=== PATIENT | female | born 1955 | race Caucasian/White ===

== ENCOUNTER 2017-07-05 08:43 | Day surgery (SDC) | payer MEDICARE ==
[~2017-07-05 08:43] MED LIST: Buffered Lidocaine 0.9% SYRIN* 5 ML/SYR SYRINGE INTRADERM ONE; Dexamethasone IV* 4 MG/ML 1 ML (4 MG) IV SLOW PU ONE; Famotidine IV* 10 MG/ML 2 ML (20 mg) IV ONE
[2017-07-05] MEDS ORDERED: Dexamethasone IV* 4 MG/ML 1 ML (4 MG) ONE (09:11)
[2017-07-05] MEDS ORDERED: ceFAZolin 2 GM PREMIX (*) 0 GM/0 ML BAG IVPB ONE (09:11)
[2017-07-05] MEDS ORDERED: Famotidine IV* 10 MG/ML 2 ML (20 mg) ONE (09:11)
[2017-07-05] MEDS ORDERED: Clindamycin 900 MG IVPREMIX(* 900 MG/50 ML SDV IV ONE (09:41)
[2017-07-05] MEDS ORDERED: Atracurium* 10 MG/ML 10 ML VIAL ONE (10:04)
[2017-07-05] MEDS ORDERED: ROPIVACAINE 5 MG/ML 30 ML BTL (0.5%) ONE (10:04)
[2017-07-05] MEDS ORDERED: Bupivacaine 0.25% SDV* 30 ML ONE (10:08)
[2017-07-05] MEDS ORDERED: Bupivacaine 0.5% W/EPI SDV* 30 ML VIAL ONE (10:09)
[2017-07-05] MEDS ORDERED: fentaNYL* 50 MCG/ML 2 ML VIAL (100 MCG VIAL) ONE ×2 (10:10→10:39)
[2017-07-05] MEDS ORDERED: Midazolam* 1 MG/ML 5 ML VIAL (5 MG) ONE (10:10)
[2017-07-05] MEDS ORDERED: methylPREDNISolone ACETATE 80* 80 MG/ML 1 ML VIAL ONE (11:12)
[2017-07-05] MEDS ORDERED: oxyCODONE/Acetamin 5/325 MG* TAB PO PRN (11:24)
[2017-07-05] MEDS ORDERED: Ondansetron INJ* 2 MG/ML VIAL IV PRN (11:24)
[2017-07-05] MEDS ORDERED: Scopolamine 1.5 mg* PATCH TRANSDERM PRN (11:24)
[2017-07-05] MEDS ORDERED: DiMENhydriNATE IV* 50 MG/ML VIAL IV PUSH PRN (11:24)
[2017-07-05] MEDS ORDERED: HYDROmorphone INJ* 1 MG/ML CARPUJECT SYRINGE IV PRN (11:24)
[2017-07-05] MEDS ORDERED: fentaNYL* 50 MCG/ML 2 ML VIAL (100 MCG VIAL) IV PRN (11:24)
[2017-07-05] MEDS ORDERED: Propofol* 10 MG/ML 20 ML BTL IV PUSH ONE (11:27)
[2017-07-05] MEDS ORDERED: Ketorolac INJ* 30 MG/ML 1 ML VIAL ONE (11:27)
[2017-07-05] MEDS ORDERED: Levalbuterol 1.25MG/0.5ML NEB ONE (11:51)
[2017-07-05] MEDS ORDERED: Levalbuterol 0.63MG/3ML NEB* UNIT OF USE INH ONE (11:59)
[2017-07-05] MEDS ORDERED: Edrophonium Chloride* 10 MG/ML 15 ML VIAL ONE (12:07)
[2017-07-05] MEDS ORDERED: Glycopyrrolate IV* 0.2 MG/ML 1 ML VIAL ONE (12:07)
[2017-07-05 12:44] VITALS: BP 117/76
[2017-07-08] MEDS ORDERED: Scopolamine PATCH Remove* 1 NOTE MISC PATCH OFF ONE (11:25)
--- NOTE | 2017-07-10 23:22 | OP ---
OPERATIVE REPORT: DATE OF OPERATION: 07/05/17 DATE OF : 59 SURGEON: Jules Mclean MD [facility] DIRECTOR: MURTAZA Fischer ANESTHESIOLOGIST: Sagar Fink MD ANESTHESIA: General with interscalene block. PRE-OP DIAGNOSIS: Right shoulder osteoarthritis with partial tear in the rotator cuff. POST-OP DIAGNOSES: Right shoulder osteoarthritis with partial tear in the rotator cuff and bicipital tendinitis. OPERATIVE PROCEDURE: 1. Right shoulder arthroscopy with extensive glenohumeral debridement including chondroplasty as well as debridement of the supraspinatus, infraspinatus, as well as subscapularis [place] biceps [place] 20382 2. Subacromial decompression with [place]romi[place]. cpt 98887 3. Intraarticular injection of 80 mg Depo-Medrol. 4. Removal of loose body x2 greater than 5 mm. cpt 08088 COMPLICATIONS: None. ESTIMATED BLOOD LOSS: Minimal. INDICATIONS: Meagan Rose is a 61-year-old female with known right shoulder osteoarthritis, she has seen several doctors for this. She has refused shoulder replacement surgery due to personal reasons. She has failed conservative management, including PT and steroid injections, and is interested in surgical debridement knowing that she may continue to have persistent pain. She is very young. There was concern for possible rotator cuff tear. I discussed at length, however, rotator cuff repair may be beneficial for her and that it is not unreasonable to do rotator cuff repair with debridement of the joint, but she was against any kind of rehab. Therefore, decision was made to do an arthroscopic depression and debridement. I did discuss with her that her biceps was likely involved as well and she elected to proceed with tenotomy. Risks and benefits were discussed at length include but not limited to bleeding , infection, damage to nerves, vessels, surrounding structures, wound nonhealing , persistent pain, scarring, stiffness, incomplete relief of symptoms, risk of anesthesia, need for further surgery, risk of DVT. The patient elected to proceed. DESCRIPTION OF PROCEDURE: The patient was greeted in the preoperative area by the attending surgeon. The correct extremity was marked and consent was confirmed. The patient then underwent interscalene nerve block by the anesthesiologist, after which she was brought back to the operating suite. She was placed in supine position on the operating table. She then underwent general anesthesia with endotracheal intubation after which she was positioned in the left lateral decubitus position with an axillary roll. All bony prominences were padded. She was secured with a peg board. The right arm was draped unsterile with 10 pounds of traction. The right shoulder was prepped and draped with the chlorhexidine soap, scrub, and alcohol wipe and a final prep with ChloraPrep. After appropriate surgical pause indicating site, side of the procedure, and administration of antibiotics, a standard posterolateral portal was made sharply with an 11-blade. The scope was then introduced into the joint. The joint was examined. The humeral head had grade 4 changes and glenoid grade 3 and 4 changes with unstable flaps. Anterior portal was made in an outside-in fashion. A shaver was used to debride the fat. Anterior, posterior, superior labrum had partial- thickness tearing. There was high-grade partial-thickness tearing of the supraspinatus tendon extending into some of the infraspinous. There was partial- thickness tearing at the subscapularis as well, but this was approximately 10-15%. The shaver was used to debride back the subscap. The biceps was taken through range of motion, found to have tear along the superior labrum and tear along the biceps substance itself. The biceps was then carefully tenotomized. The undersurface of supraspinatus was then debrided back using shaver extending into the infraspinatus. The glenohumeral joint was examined. There were small loose bodies inferiorly we tried to identify. In the inferior recess, there were a number of loose bodies. At least 2 of them were about 5 mm or greater; these were removed using emmanuelle as well as grasper. Once the debridement had been complete including chondroplasty and the rotator cuff debridement as well as biceps tenotomy, attention was directed to the subacromial space. The scope was positioned on the subacromial space, there was abundant bursa that was present. The undersurface of the acromion was identified and there was a moderate-sized spur. The acromion was skeletonized to reveal the spur. The spur was then removed using a 4.0-mm oval bur, which allowed for more room for the rotator cuff. Rotator cuff was examined and was found to be completely pristine on the bursal side. All fluid and debris was removed from this portion of the case. At this point, decision was made to proceed with an intraarticular injection and steroids for pain control postoperatively. The needle was placed in arthroscopic visualization into the glenohumeral joint. The wounds were copiously irrigated with sterile saline. All fluid and debris was removed from the joint itself. The the portals were closed with 3-0 nylon. The glenohumeral joint was injected with 80 mg of Depo-Medrol with 3 cc of Marcaine. Sterile dressings were applied as well as regular sling. She was woken from anesthesia, transferred to PACU in stable condition. POSTOPERATIVE PLAN: She will be allowed gentle range of motion. She should not be lifting, pushing, or pulling for about 3 to 4 weeks. I will see the patient back in 10 to 14 days. She will be discharged on pain medications. DVT prophylaxis was considered but deferred due to no previous personal or family history. [id number]/CPS #: [id number] RAMON
== END 2017-07-05 13:01 | disposition home or self-care (01) ==
LOC: OREAST 08:43
PROVIDERS: ATTEND Orthopaedic Surgery
DX: M75.111 Incomplete rotator cuff tear or rupture of right shoulder, not specified as traumatic (principal); M19.011 Primary osteoarthritis, right shoulder; M75.21 Bicipital tendinitis, right shoulder; M24.011 Loose body in right shoulder; E11.9 Type 2 diabetes mellitus without complications; I10 Essential (primary) hypertension; K22.70 Barrett's esophagus without dysplasia; D04.8 Carcinoma in situ of skin of other sites; F41.8 Other specified anxiety disorders; K70.2 Alcoholic fibrosis and sclerosis of liver; M79.7 Fibromyalgia; M19.90 Unspecified osteoarthritis, unspecified site; Z87.891 Personal history of nicotine dependence; G24.9 Dystonia, unspecified; R05 Cough
CPT/HCPCS: A9270-GY; J0690; J1040; J1100; J1885; J2250; J2704; J2795; J3010

== ENCOUNTER 2019-07-26 05:31 | Inpatient (IN) | payer MEDICARE ==
[~2019-07-26 05:31] MED LIST changes: -Buffered Lidocaine 0.9% SYRIN* 5 ML/SYR SYRINGE INTRADERM ONE; +Buffered Lidocaine 1% SYRIN* 1 ML/SYRINGE INTRADERM ONE; -Dexamethasone IV* 4 MG/ML 1 ML (4 MG) IV SLOW PU ONE; -Famotidine IV* 10 MG/ML 2 ML (20 mg) IV ONE; +Tranexamic Acid 1,000 MG in NS 0.9% 50 ML* (outpatient use) IV SCH
--- OUTSIDE RECORDS SUMMARY | 2019-07-26 05:34 | XMS REPORT | Continuity of Care Document ---
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 Unavailable Problems Active Problems Provider Date Common variable agammaglobulinemia Frederic Myrick MD Onset: 06/18/2016 Moderate persistent asthma Frederic Myrick MD Onset: 10/01/2016 Cough Kevyn Thompson RPA-C Onset: 10/13/2016 Acute maxillary sinusitis Frederic Myrick MD Onset: 11/05/2016 Essential hypertension Frederic Myrick MD Onset: 01/14/2017 Acute bronchitis Beena Kahn NP Onset: 03/04/2018 Viremia Frederic Myrick MD Onset: 05/09/2018 Other herpesviral infection Frederic Myrick MD Onset: 11/18/2018 Social History Type Date Description Comments Sex Unknown Tobacco Use Start: Unknown End: Unknown Patient is a former smoker Smoking Status Reviewed: 06/01/19 Patient is a former smoker Allergies, Adverse Reactions, Alerts Active Allergies Reaction Severity Comments Date Xanax 06/18/2016 Gabapentin 06/18/2016 Codeine 06/18/2016 Zostavax 06/18/2016 Metronidazole 06/18/2016 Doxycycline 06/18/2016 Xifaxan 06/18/2016 Januvia 06/18/2016 Vitamin C 06/18/2016 Augmentin 06/18/2016 Singulair 06/18/2016 Citric Acid 06/18/2016 Casein 06/18/2016 Ginseng 06/18/2016 Bovine Extracted Products 06/18/2016 DGL 06/18/2016 Cortef 06/18/2016 Parabens 01/14/2017 Soybean Lecithin GI distress Mild 01/12/2018 Amoxicillin 06/01/2019 Medications Active Medications SIG Qnty Indications Ordering Provider Date Lidocaine-Prilocaine apply 30-40 30gm Kevyn Thompson, 05/11/2019 minutes prior to RPA-C 2.5-2.5% Cream infusion Low Dose Naltroxene Kevyn Thompson, 12/05/2018 RPA-C [facility]ul[facility] Kit/Tubing/Mouthpiec directed MD Ramez e Kit J45.41 Medrol take 5 tablets day 15tabs [facility] 11/24/2018 4mg Tablets 1, take 4 tabs day MD Ramez 2, take 3 tabs day 3, take 2 tabs day 4. then take 1 tab on day 5. Albuterol Sulfate 1 vial every 4h as 150ml [facility] 03/04/2018 needed MD Ramez (2.5mg/3ML) 0.083% Nebulizer Ventolin HFA inhale 2 puffs by 8gm [facility] 03/04/2018 inhalation route MD Ramez 108(90Base) mcg/Act every 4 hours as Aerosol needed Gamunex-C 50GM IV Monthly [facility] 09/27/2017 50GM/500ML MD Ramez Solution Crestor one tablet by mouth [facility] 09/27/2017 10mg Tablets daily MD Ramez Epipen 2-Fidencio as directed 2units [facility] 03/10/2017 MD Ramez 0.3mg/0.3ML Solution Auto-Inject Protonix 1 to 2 by mouth [facility] 06/18/2016 40mg Tablets every day prn MD DR Marilin Myrick Unknown 2mg Pen Karyna Allergy 1 tab daily in the Unknown 60mg morning Tablets Glipizide 2 tabs once daily Unknown 5mg Tablets in Am Famciclovir 2 twice a day prn Unknown 250mg -outbreak Tablets Benadryl Allergy prn-OTC Unknown 25mg Capsules Dextromethorphan-Guai 1 at bedtime once Unknown fenesin daily 15-600 Tablets Probiotic Acidophilus OTC- takes only as Unknown needed Capsules Ibuprofen 1 by mouth three Unknown 800mg Tablets times a day as needed with food prn Clonazepam 1.5mg once daily at Unknown 1.5mg hs Tablets Restasis one drop in each eye Unknown 0.05% Emulsion twice a day Remeron Take one tab daily Unknown 15mg Tablets at bedtime Medications Administered in Office Medication SIG Qnty Indications Ordering Provider Date Injection Gamunex IV Frederic Myrick MD 05/11/2019 Nonlyophilized 500 MG Injection Injection Gamunex IV Infusion 05/11/2019 Nonlyophilized 500 MG Injection IV Infusion For Frederic Myrick MD 05/11/2019 Therapy,Prophylaxis Or Diagnosis Additional Hour Injection IV Infusion For Infusion 05/11/2019 Therapy,Prophylaxis Or Diagnosis Additional Hour Injection IV Infusion For Frederic Myrick MD 05/11/2019 Therapy,Prophylaxis Or Diagnosis Init Up To 1 HR Injection IV Infusion For Infusion 05/11/2019 Therapy,Prophylaxis Or Diagnosis Init Up To 1 HR Injection Injection Gamunex IV Frederic Myrick MD 04/14/2019 Nonlyophilized 500 MG Injection Injection Gamunex IV Infusion 04/14/2019 Nonlyophilized 500 MG Injection IV Infusion For Frederic Myrick MD 04/14/2019 Therapy,Prophylaxis Or Diagnosis Additional Hour Injection IV Infusion For Infusion 04/14/2019 Therapy,Prophylaxis Or Diagnosis Additional Hour Injection IV Infusion For Frederic Myrick MD 04/14/2019 Therapy,Prophylaxis Or Diagnosis Init Up To 1 HR Injection IV Infusion For Infusion 04/14/2019 Therapy,Prophylaxis Or Diagnosis Init Up To 1 HR Injection Injection Gamunex IV Frederic Myrick MD 03/16/2019 Nonlyophilized 500 MG Injection Injection Gamunex IV Infusion 03/16/2019 Nonlyophilized 500 MG Injection IV Infusion For Frederic Myrick MD 03/16/2019 Therapy,Prophylaxis Or Diagnosis Additional Hour Injection IV Infusion For Infusion 03/16/2019 Therapy,Prophylaxis Or Diagnosis Additional Hour Injection IV Infusion For Frederic Myrick MD 03/16/2019 Therapy,Prophylaxis Or Diagnosis Init Up To 1 HR Injection IV Infusion For Infusion 03/16/2019 Therapy,Prophylaxis Or Diagnosis Init Up To 1 HR Injection Injection Gamunex IV Frederic Myrick MD 02/15/2019 Nonlyophilized 500 MG Injection Injection Gamunex IV Infusion 02/15/2019 Nonlyophilized 500 MG Injection IV Infusion For Frederic Myrick MD 02/15/2019 Therapy,Prophylaxis Or Diagnosis Additional Hour Injection IV Infusion For Infusion 02/15/2019 Therapy,Prophylaxis Or Diagnosis Additional Hour Injection IV Infusion For Frederic Myrick MD 02/15/2019 Therapy,Prophylaxis Or Diagnosis Init Up To 1 HR Injection IV Infusion For Infusion 02/15/2019 Therapy,Prophylaxis Or Diagnosis Init Up To 1 HR Injection Injection Gamunex IV Frederic Myrick MD 01/18/2019 Nonlyophilized 500 MG Injection Injection Gamunex IV Infusion 01/18/2019 Nonlyophilized 500 MG Injection IV Infusion For Frederic Myrick MD 01/18/2019 Therapy,Prophylaxis Or Diagnosis Additional Hour Injection IV Infusion For Infusion 01/18/2019 Therapy,Prophylaxis Or Diagnosis Additional Hour Injection IV Infusion For Frederic yMrick MD 01/18/2019 Therapy,Prophylaxis Or Diagnosis Init Up To 1 HR Injection IV Infusion For Infusion 01/18/2019 Therapy,Prophylaxis Or Diagnosis Init Up To 1 HR Injection Injection Gamunex IV Frederic Myrick MD 12/22/2018 Nonlyophilized 500 MG Injection Injection Gamunex IV Infusion 12/22/2018 Nonlyophilized 500 MG Injection IV Infusion For Frederic Myrick MD 12/22/2018 Therapy,Prophylaxis Or Diagnosis Additional Hour Injection IV Infusion For Infusion 12/22/2018 Therapy,Prophylaxis Or Diagnosis Additional Hour Injection IV Infusion For Frederic Myrick MD 12/22/2018 Therapy,Prophylaxis Or Diagnosis Init Up To 1 HR Injection IV Infusion For Infusion 12/22/2018 Therapy,Prophylaxis Or Diagnosis Init Up To 1 HR Injection Injection Gamunex IV Frederic Myrick MD 11/24/2018 Nonlyophilized 500 MG Injection Injection Gamunex IV Infusion 11/24/2018 Nonlyophilized 500 MG Injection IV Infusion For Frederic Myrick MD 11/24/2018 Therapy,Prophylaxis Or Diagnosis Additional Hour Injection IV Infusion For Infusion 11/24/2018 Therapy,Prophylaxis Or Diagnosis Additional Hour Injection IV Infusion For Frederic Myrick MD 11/24/2018 Therapy,Prophylaxis Or Diagnosis Init Up To 1 HR Injection IV Infusion For Infusion 11/24/2018 Therapy,Prophylaxis Or Diagnosis Init Up To 1 HR Injection Injection Gamunex IV Frederic Myrick MD 10/20/2018 Nonlyophilized 500 MG Injection Injection Gamunex IV Infusion 10/20/2018 Nonlyophilized 500 MG Injection IV Infusion For Frederic Myrick MD 10/20/2018 Therapy,Prophylaxis Or Diagnosis Additional Hour Injection IV Infusion For Infusion 10/20/2018 Therapy,Prophylaxis Or Diagnosis Additional Hour Injection IV Infusion For Frederic Myrick MD 10/20/2018 Therapy,Prophylaxis Or Diagnosis Init Up To 1 HR Injection IV Infusion For Infusion 10/20/2018 Therapy,Prophylaxis Or Diagnosis Init Up To 1 HR Injection Injection Gamunex IV Frederic Myrick MD 09/22/2018 Nonlyophilized 500 MG Injection Injection Gamunex IV Infusion 09/22/2018 Nonlyophilized 500 MG Injection IV Infusion For Frederic Myrick MD 09/22/2018 Therapy,Prophylaxis Or Diagnosis Additional Hour Injection IV Infusion For Infusion 09/22/2018 Therapy,Prophylaxis Or Diagnosis Additional Hour Injection IV Infusion For Frederic Myrick MD 09/22/2018 Therapy,Prophylaxis Or Diagnosis Init Up To 1 HR Injection IV Infusion For Infusion 09/22/2018 Therapy,Prophylaxis Or Diagnosis Init Up To 1 HR Injection Injection Gamunex IV Frederic Myrick MD 08/24/2018 Nonlyophilized 500 MG Injection Injection Gamunex IV Infusion 08/24/2018 Nonlyophilized 500 MG Injection IV Infusion For Frederic Myrick MD 08/24/2018 Therapy,Prophylaxis Or Diagnosis Additional Hour Injection IV Infusion For Infusion 08/24/2018 Therapy,Prophylaxis Or Diagnosis Additional Hour Injection IV Infusion For Frederic Myrick MD 08/24/2018 Therapy,Prophylaxis Or Diagnosis Init Up To 1 HR Injection IV Infusion For Infusion 08/24/2018 Therapy,Prophylaxis Or Diagnosis Init Up To 1 HR Injection Injection Gamunex IV Frederic Myrick MD 07/28/2018 Nonlyophilized 500 MG Injection Injection Gamunex IV Infusion 07/28/2018 Nonlyophilized 500 MG Injection IV Infusion For Frederic Myrick MD 07/28/2018 Therapy,Prophylaxis Or Diagnosis Additional Hour Injection IV Infusion For Infusion 07/28/2018 Therapy,Prophylaxis Or Diagnosis Additional Hour Injection IV Infusion For Frederic Myrick MD 07/28/2018 Therapy,Prophylaxis Or Diagnosis Init Up To 1 HR Injection IV Infusion For Infusion 07/28/2018 Therapy,Prophylaxis Or Diagnosis Init Up To 1 HR Injection Injection Gamunex IV Frederic Myrick MD 06/30/2018 Nonlyophilized 500 MG Injection Injection Gamunex IV Infusion 06/30/2018 Nonlyophilized 500 MG Injection IV Infusion For Frederic Myrick MD 06/30/2018 Therapy,Prophylaxis Or Diagnosis Additional Hour Injection IV Infusion For Infusion 06/30/2018 Therapy,Prophylaxis Or Diagnosis Additional Hour Injection IV Infusion For Frederic Myrick MD 06/30/2018 Therapy,Prophylaxis Or Diagnosis Init Up To 1 HR Injection IV Infusion For Infusion 06/30/2018 Therapy,Prophylaxis Or Diagnosis Init Up To 1 HR Injection Injection Gamunex IV Frederic Myrick MD 06/02/2018 Nonlyophilized 500 MG Injection Injection Gamunex IV Infusion 06/02/2018 Nonlyophilized 500 MG Injection IV Infusion For Frederic Myrick MD 06/02/2018 Therapy,Prophylaxis Or Diagnosis Additional Hour Injection IV Infusion For Infusion 06/02/2018 Therapy,Prophylaxis Or Diagnosis Additional Hour Injection IV Infusion For Frederic Myrick MD 06/02/2018 Therapy,Prophylaxis Or Diagnosis Init Up To 1 HR Injection IV Infusion For Infusion 06/02/2018 Therapy,Prophylaxis Or Diagnosis Init Up To 1 HR Injection Injection Gamunex IV Frederic Myrick MD 05/05/2018 Nonlyophilized 500 MG Injection Injection Gamunex IV Infusion 05/05/2018 Nonlyophilized 500 MG Injection IV Infusion For Frederic Myrick MD 05/05/2018 Therapy,Prophylaxis Or Diagnosis Additional Hour Injection IV Infusion For Infusion 05/05/2018 Therapy,Prophylaxis Or Diagnosis Additional Hour Injection IV Infusion For Frederic Myrick MD 05/05/2018 Therapy,Prophylaxis Or Diagnosis Init Up To 1 HR Injection IV Infusion For Infusion 05/05/2018 Therapy,Prophylaxis Or Diagnosis Init Up To 1 HR Injection Injection Gamunex IV Frederic Myrick MD 04/08/2018 Nonlyophilized 500 MG Injection Injection Gamunex IV Infusion 04/08/2018 Nonlyophilized 500 MG Injection IV Infusion For Frederic Myrick MD 04/08/2018 Therapy,Prophylaxis Or Diagnosis Additional Hour Injection IV Infusion For Infusion 04/08/2018 Therapy,Prophylaxis Or Diagnosis Additional Hour Injection IV Infusion For Frederic Myrick MD 04/08/2018 Therapy,Prophylaxis Or Diagnosis Init Up To 1 HR Injection IV Infusion For Infusion 04/08/2018 Therapy,Prophylaxis Or Diagnosis Init Up To 1 HR Injection Injection Gamunex IV Frederic Myrick MD 03/08/2018 Nonlyophilized 500 MG Injection Injection Gamunex IV Infusion 03/08/2018 Nonlyophilized 500 MG Injection IV Infusion For Frederic Myrick MD 03/08/2018 Therapy,Prophylaxis Or Diagnosis Additional Hour Injection IV Infusion For Infusion 03/08/2018 Therapy,Prophylaxis Or Diagnosis Additional Hour Injection IV Infusion For Frederic Myrick MD 03/08/2018 Therapy,Prophylaxis Or Diagnosis Init Up To 1 HR Injection IV Infusion For Infusion 03/08/2018 Therapy,Prophylaxis Or Diagnosis Init Up To 1 HR Injection Injection Gamunex IV Frederic Myrick MD 02/10/2018 Nonlyophilized 500 MG Injection Injection Gamunex IV Infusion 02/10/2018 Nonlyophilized 500 MG Injection IV Infusion For Frederic Myrick MD 02/10/2018 Therapy,Prophylaxis Or Diagnosis Additional Hour Injection IV Infusion For Infusion 02/10/2018 Therapy,Prophylaxis Or Diagnosis Additional Hour Injection IV Infusion For Frederic Myrick MD 02/10/2018 Therapy,Prophylaxis Or Diagnosis Init Up To 1 HR Injection IV Infusion For Infusion 02/10/2018 Therapy,Prophylaxis Or Diagnosis Init Up To 1 HR Injection Injection Gamunex IV Frederic Myrick MD 01/12/2018 Nonlyophilized 500 MG Injection Injection Gamunex IV Infusion 01/12/2018 Nonlyophilized 500 MG Injection IV Infusion For Frederic Myrick MD 01/12/2018 Therapy,Prophylaxis Or Diagnosis Additional Hour Injection IV Infusion For Infusion 01/12/2018 Therapy,Prophylaxis Or Diagnosis Additional Hour Injection IV Infusion For Frederic Myrick MD 01/12/2018 Therapy,Prophylaxis Or Diagnosis Init Up To 1 HR Injection IV Infusion For Infusion 01/12/2018 Therapy,Prophylaxis Or Diagnosis Init Up To 1 HR Injection Injection Gamunex IV Frederic Myrick MD 12/16/2017 Nonlyophilized 500 MG Injection Injection Gamunex IV Infusion 12/16/2017 Nonlyophilized 500 MG Injection IV Infusion For Frederic Myrick MD 12/16/2017 Therapy,Prophylaxis Or Diagnosis Additional Hour Injection IV Infusion For Infusion 12/16/2017 Therapy,Prophylaxis Or Diagnosis Additional Hour Injection IV Infusion For Frederic Myrick MD 12/16/2017 Therapy,Prophylaxis Or Diagnosis Init Up To 1 HR Injection IV Infusion For Infusion 12/16/2017 Therapy,Prophylaxis Or Diagnosis Init Up To 1 HR Injection Injection Gamunex IV Frederic Myrick MD 11/18/2017 Nonlyophilized 500 MG Injection Injection Gamunex IV Infusion 11/18/2017 Nonlyophilized 500 MG Injection IV Infusion For Frederic Myrick MD 11/18/2017 Therapy,Prophylaxis Or Diagnosis Additional Hour Injection IV Infusion For Infusion 11/18/2017 Therapy,Prophylaxis Or Diagnosis Additional Hour Injection IV Infusion For Frederic Myrick MD 11/18/2017 Therapy,Prophylaxis Or Diagnosis Init Up To 1 HR Injection IV Infusion For Infusion 11/18/2017 Therapy,Prophylaxis Or Diagnosis Init Up To 1 HR Injection Injection Gamunex IV Frederic Myrick MD 10/25/2017 Nonlyophilized 500 MG Injection Injection Gamunex IV Frederic Myrick MD 10/25/2017 Nonlyophilized 500 MG Injection Injection Gamunex IV Infusion 10/25/2017 Nonlyophilized 500 MG Injection IV Infusion For Frederic Myrick MD 10/25/2017 Therapy,Prophylaxis Or Diagnosis Additional Hour Injection IV Infusion For Infusion 10/25/2017 Therapy,Prophylaxis Or Diagnosis Additional Hour Injection IV Infusion For Frederic Myrick MD 10/25/2017 Therapy,Prophylaxis Or Diagnosis Init Up To 1 HR Injection IV Infusion For Infusion 10/25/2017 Therapy,Prophylaxis Or Diagnosis Init Up To 1 HR Injection Injection Gamunex IV Frederic Myrick MD 09/27/2017 Nonlyophilized 500 MG Injection Injection Gamunex IV Infusion 09/27/2017 Nonlyophilized 500 MG Injection IV Infusion For Frederic Myrick MD 09/27/2017 Therapy,Prophylaxis Or Diagnosis Additional Hour Injection IV Infusion For Infusion 09/27/2017 Therapy,Prophylaxis Or Diagnosis Additional Hour Injection IV Infusion For Frederic Myrick MD 09/27/2017 Therapy,Prophylaxis Or Diagnosis Init Up To 1 HR Injection IV Infusion For Infusion 09/27/2017 Therapy,Prophylaxis Or Diagnosis Init Up To 1 HR Injection Immunizations Description No Information Available Vital Signs Date Vital Result Comment 06/01/2019 9:33am BP Systolic 129 mmHg BP Diastolic 77 mmHg Height 64 inches 5'4" Weight 195.38 lb BMI (Body Mass Index) 33.5 kg/m2 Heart Rate 97 /min Respiratory Rate 18 /min O2 % BldC Oximetry 96 % 05/11/2019 12:51pm BP Systolic 149 mmHg BP Diastolic 92 mmHg Height 64 inches 5'4" Weight 194.12 lb BMI (Body Mass Index) 33.3 kg/m2 Heart Rate 95 /min Respiratory Rate 18 /min Body Temperature 98.3 F O2 % BldC Oximetry 95 % Results Test Date Facility Test Result H/L Range Note Laboratory test 03/01/2019 [facility] <pending> finding [facility] Unspec Spec Procedures Date Code Description Status 05/11/2019 15454 IV Infusion For Therapy,Prophylaxis Or Diagnosis Completed Additional Hour 05/11/2019 57289 IV Infusion For Therapy,Prophylaxis Or Diagnosis Completed Additional Hour 05/11/2019 92999 IV Infusion For Therapy,Prophylaxis Or Diagnosis Init Up Completed To 1 HR 05/11/2019 27285 IV Infusion For Therapy,Prophylaxis Or Diagnosis Init Up Completed To 1 HR 04/14/2019 22485 IV Infusion For Therapy,Prophylaxis Or Diagnosis Completed Additional Hour 04/14/2019 63060 IV Infusion For Therapy,Prophylaxis Or Diagnosis Completed Additional Hour 04/14/2019 65059 IV Infusion For Therapy,Prophylaxis Or Diagnosis Init Up Completed To 1 HR 04/14/2019 16084 IV Infusion For Therapy,Prophylaxis Or Diagnosis Init Up Completed To 1 HR 03/16/2019 22060 IV Infusion For Therapy,Prophylaxis Or Diagnosis Completed Additional Hour 03/16/2019 29364 IV Infusion For Therapy,Prophylaxis Or Diagnosis Completed Additional Hour 03/16/2019 22184 IV Infusion For Therapy,Prophylaxis Or Diagnosis Init Up Completed To 1 HR 03/16/2019 60649 IV Infusion For Therapy,Prophylaxis Or Diagnosis Init Up Completed To 1 HR 02/15/2019 70178 IV Infusion For Therapy,Prophylaxis Or Diagnosis Init Up Completed To 1 HR 02/15/2019 39941 IV Infusion For Therapy,Prophylaxis Or Diagnosis Init Up Completed To 1 HR 02/15/2019 86366 IV Infusion For Therapy,Prophylaxis Or Diagnosis Completed Additional Hour 02/15/2019 71653 IV Infusion For Therapy,Prophylaxis Or Diagnosis Completed Additional Hour 01/18/2019 06797 IV Infusion For Therapy,Prophylaxis Or Diagnosis Completed Additional Hour 01/18/2019 11169 IV Infusion For Therapy,Prophylaxis Or Diagnosis Completed Additional Hour 01/18/2019 37109 IV Infusion For Therapy,Prophylaxis Or Diagnosis Init Up Completed To 1 HR 01/18/2019 26850 IV Infusion For Therapy,Prophylaxis Or Diagnosis Init Up Completed To 1 HR 12/22/2018 28650 IV Infusion For Therapy,Prophylaxis Or Diagnosis Completed Additional Hour 12/22/2018 38135 IV Infusion For Therapy,Prophylaxis Or Diagnosis Completed Additional Hour 12/22/2018 97327 IV Infusion For Therapy,Prophylaxis Or Diagnosis Init Up Completed To 1 HR 12/22/2018 72805 IV Infusion For Therapy,Prophylaxis Or Diagnosis Init Up Completed To 1 HR Medical Devices Description No Information Available Encounters Type Date Location Provider Dx Diagnosis Office Visit 03/01/2019 Mary Champagne 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 B37.0 Candidal stomatitis Office Visit 12/05/2018 11:30a Kevyn Bentley 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 Assessments Date Code Description Provider 06/01/2019 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 Frederic Myrick MD 05/11/2019 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 Frederic Myrick MD 05/11/2019 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 Infusion 04/14/2019 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 Frederic Myrick MD 04/14/2019 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 Infusion 03/16/2019 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 Frederic Myrick MD 03/01/2019 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 Frederic Myrick MD 03/01/2019 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 MURTAZA Rothman 03/01/2019 B37.0 Candidal stomatitis Frederic Myrick MD 03/01/2019 B37.0 Candidal stomatitis MURTAZA Rothman 02/15/2019 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 rFederic Myrick MD 02/15/2019 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 Infusion 01/18/2019 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 Frederic Myrick MD 01/18/2019 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
--- OUTSIDE RECORDS SUMMARY | 2019-07-26 05:34 | XMS REPORT | Continuity of Care Document ---
:1955 External Reference #:[id number] Author Name MURTAZA Rodriguez (transmitted by agent of provider Mere Jimenes) Address [address] [facility], [address] Care Team Providers Name Role Phone Melinda Julian DO - Family Care Team Information Dietitian Teaching Medicine Problems Active Problems Provider Date Localized, primary osteoarthritis of the shoulder Jules Mclean MD Onset: 07/2017 region Disorder of shoulder Jules Mclean MD Onset: 05/27/2017 Bicipital tenosynovitis Jules Mclean MD Onset: 07/16/2017 Incomplete rotator cuff tear or rupture of right Jules Mclean MD Onset: 08/2016 shoulder, not specified as traumatic Social History Type Date Description Comments Sex Unknown Tobacco Use Start: Unknown End: Former Cigarette Smoker quit 36 years ago Unknown (smoked less than a pack a day) ETOH Use Currently consumes alcohol Tobacco Use Start: Unknown End: Patient is a former 10 or fewer cigarettes Unknown smoker daily, quit 36 years ago Smoking Status Reviewed: 05/30/19 Patient is a former 10 or fewer cigarettes smoker daily, quit 36 years ago Exercise Exercises sporadically yoga, walking and Type/Frequency cardio Allergies, Adverse Reactions, Alerts Active Allergies Reaction Severity Comments Date Xanax 02/14/2013 Codeine 02/14/2013 Gabapentin 02/14/2013 Parabens 05/27/2017 Some Steroids 05/27/2017 Augmentin Nausea and Vomiting 06/29/2017 Doxycycline Nausea and Vomiting 06/29/2017 Caseins 05/13/2018 Soy Acid 05/13/2018 Zostavax 05/13/2018 Metronidazole 05/13/2018 Xifaxan 05/13/2018 Sitagliptin 05/13/2018 Vitamin C 05/13/2018 Lyrica 05/13/2018 Sinqulan 05/13/2018 Dexamethasone 05/13/2018 Preservision 05/13/2018 Medications Active Medications SIG Qnty Indications Ordering Date Provider Naltrexone HCL 4.5 mg compounded in 15gm Claudette 04/25/2019 capsules by mouth MURTAZA Perkins Powder every day Fluconazole 1 by mouth once a 30tabs Claudette 12/19/2018 200mg week per pt MURTAZA Perkins Tablets Candex 2 capsules by mouth Unknown daily Nasacort Allergy 1 puff to each Unknown 24HR nostril every hs 55mcg/Act Aerosol Probiotic 1 by mouth every day Unknown Capsules currently pt. is holding med. Clotrimazole prn to skin folds Unknown 1% Cream Ketoconazole as needed in folds Unknown 2% Cream Famciclovir 1 by mouth twice Unknown 500mg daily for three days Tablets then as needed Ibuprofen 1 by mouth three Unknown 800mg times a day for Tablets fibromyalgia as needed Bydureon 1 injection weekly Unknown 2mg Pen Karyna Allergy 1 by mouth every day Unknown Tablets Gammunex-C qd Unknown 50mg Restasis 1 drop in each eye Unknown 0.05% Emulsion Crestor 1 by mouth every day Unknown 5mg Tablets Glipizide 2 tabs by mouth Unknown 5mg Tablets every day Mirtazapine qd Unknown 15mg Tablets Clonazepam 1.5mg qd [place], 1mg Melinda, DO Tablets Protonix 1 by mouth every day Unknown 40mg Tablets DR Medications Administered in Office Medication SIG Qnty Indications Ordering Provider Date Depomedrol 80MG Janice Samayoa M.D. 08/30/2014 Injection Depomedrol 80MG Janice Samayoa M.D. 01/18/2014 Injection Depomedrol 80MG Janice Samayoa M.D. 12/28/2013 Injection Immunizations Description No Information Available Vital Signs Date Vital Result Comment 05/30/2019 9:19am Height 64 inches 5'4" Weight 194.25 lb Heart Rate 97 /min BP Systolic 130 mmHg BP Diastolic 87 mmHg O2 % BldC Oximetry 97 % BMI (Body Mass Index) 33.3 kg/m2 05/08/2019 9:12am Height 64 inches 5'4" Weight 191.38 lb Heart Rate 90 /min BP Systolic 135 mmHg BP Diastolic 89 mmHg Body Temperature 97.5 F O2 % BldC Oximetry 97 % BMI (Body Mass Index) 32.8 kg/m2 Results Test Date Facility Test Result H/L Range Note Laboratory test 01/05/2019 [facility] Cytology SEE RESULT [address] [place] [address] [phone] 1 SEE RESULT BELOW Name: JAVI ROSE : [address]: Juan Antonio Marino MD Acct: [id number] Unit: [id number] AGE: 63 Location: [facility] Re01/05/19 SEX: F Status: REG REF SPEC: [id number] JEROD: 01/05/19-[address] [facility] [address]: Juan Antonio Marino MD REQ: [id number] RECD: 01/05/190926 STATUS: SOUT _ ORDERED: TP IMAGE ANALYS, HPV/Thin Prep COMMENTS: [id number] Negative for Intraepithelial lesion or Malignancy Date Time Test Result Flag (u) Normal Range 01/05/19 1006 HPV RNA Negative Negative The high-risk HPV types detected by the assay include: 16, 18, 31, 33, 35, 39, 45, 51, 52, 56, 58, 59, 66, and 68. A. Ectocervical/Endocervical Specimen Adequacy: Satisfactory of evaluation Transformation zone component cannot be definitely identified due to presence of atrophy or other hormonal changes Patient Information: HPV: High risk HPV RNA testing regardless of pap results. Actual Specimen Date: 01/05/19 Last Menstrual Date: 08/16/94 ?: N Post Menopausal?: Y Hysterectomy?: N Signed by and Reported on: BJORN Sierra(ASCP) [id number] This Pap test was evaluated with the assistance of the [employer] Test Imaging System. Due to cytologic findings at the supersonic engineer microscope, comprehensive manual rescreening by a Window Shade Cutter And Mounter may be required. The Pap Smear is a screening test designed to aid in the detection of premalignant and malignant conditions of the uterine cervix. It is not a diagnostic procedure and should not be used as the sole means of detecting cervical cancer. Both false- positive and false- negative reports do occur. Depending on your risk status, a Pap smear should be obtained and evaluated every 1-3 years. END OF REPORT DEPARTMENT OF PATHOLOGY, [address] [place] [address] Bobby Noland M.D. Director [facility] # [id number] Procedures Date Code Description Status 10/19/2018 [id number] Mammogram Completed 09/16/2016 [id number] Mammogram Completed 09/09/2016 [id number] Mammogram Completed 02/19/2016 [id number] Bone Mineral Density Test Completed Medical Devices Description No Information Available Encounters Type Date Location Provider Dx Diagnosis Office Visit 05/08/2019 [facility] [place] Melisa Saucedo, G89.4 Chronic pain 9:30a [facility] COW [facility]ENDER syndrome Office Visit 04/25/2019 [facility] [place] Claudette M79.7 Fibromyalgia 9:30a [facility] MURTAZA Perkins K58.0 Irritable bowel syndrome with diarrhea B37.9 Candidiasis, unspecified F32.1 Major depressive disorder, single episode, moderate Office Visit 03/30/2019 9:30a [facility] [place] Claudette Perkins M79.7 Fibromyalgia [facility] PA K58.0 Irritable bowel syndrome with diarrhea B37.9 Candidiasis, unspecified F32.1 Major depressive disorder, single episode, moderate Office Visit 02/21/2019 9:30a [facility] [place] Claudette Perkins K58.0 Irritable bowel [facility] [place] syndrome with diarrhea M79.7 Fibromyalgia F32.1 Major depressive disorder, single episode, moderate Office Visit 01/17/2019 10:00a [facility] [place] Claudette Perkins K58.0 Irritable bowel [facility] [place] syndrome with diarrhea M79.7 Fibromyalgia F32.1 Major depressive disorder, single episode, moderate Office Visit 12/19/2018 2:30p [facility] [place] Claudette Perkins K58.0 Irritable bowel [facility] PA syndrome with diarrhea B37.9 Candidiasis, unspecified B00.9 Herpesviral infection, unspecified Office Visit 12/13/2018 1:30p [facility] Claudia Escobar MD R05 [facility] [place] [facility] Assessments Date Code Description Provider 05/30/2019 M79.7 Fibromyalgia Claudette Gregorio, PA 05/30/2019 K58.0 Irritable bowel syndrome with diarrhea Claudette Gregorio, PA 05/30/2019 F32.1 Major depressive disorder, single episode, Claudette Gregorio, PA moderate 05/30/2019 B37.9 Candidiasis, unspecified Claudette Gregorio, PA 05/08/2019 G89.4 Chronic pain syndrome Melisa Saucedo NP 04/25/2019 M79.7 Fibromyalgia Claudette Gregorio, PA 04/25/2019 K58.0 Irritable bowel syndrome with diarrhea Claudette Gregoiro, PA 04/25/2019 B37.9 Candidiasis, unspecified Claudette Gregorio, PA 04/25/2019 F32.1 Major depressive disorder, single episode, Claudette Gregorio, PA moderate 03/30/2019 M79.7 Fibromyalgia Claudette Gregorio, PA 03/30/2019 K58.0 Irritable bowel syndrome with diarrhea Claudette Gregorio, PA 03/30/2019 B37.9 Candidiasis, unspecified Claudette Gregorio, PA 03/30/2019 F32.1 Major depressive disorder, single episode, Claudette Gregorio, PA moderate 02/21/2019 K58.0 Irritable bowel syndrome with diarrhea Claudette Gregorio, PA 02/21/2019 M79.7 Fibromyalgia Claudette Gregorio, PA 02/21/2019 F32.1 Major depressive disorder, single episode, Claudette Gregorio, PA moderate 01/17/2019 K58.0 Irritable bowel syndrome with diarrhea Claudette Gregorio, PA 01/17/2019 M79.7 Fibromyalgia Claudette Gregorio, PA 01/17/2019 F32.1 Major depressive disorder, single episode, Claudette Gregorio, PA moderate 01/05/2019 Z91.89 Oth personal risk factors, not elsewhere Juan Antonio Marino MD classified 01/05/2019 Z11.51 Encounter for screening for human Juan Antonio Marino MD papillomavirus (HPV) 12/19/2018 K58.0 Irritable bowel syndrome with diarrhea MURTAZA Rodriguez 12/19/2018 B37.9 Candidiasis, unspecified MURTAZA Rodriguez 12/19/2018 B00.9 Herpesviral infection, unspecified MURTAZA Rodriguez 12/13/2018 R05 Cough Claudia Escobar MD Plan of Treatment Future Appointment(s):06/29/2019 9:30 am - MURTAZA Rodriguez at [facility]05/30/2019 - Claudette Perkins, PAM79.7 SdeeycgbkckwH29.0 Irritable bowel syndrome with diarrheaRecommendations:you might try to get through another Breath test you will work with the handout on the biome and seeif you can gently introduce some prebiotics again. mix up your xmzttnayosO58.1 Major depressive disorder, single episode, xtmkuwtqV29.9 Candidiasis, unspecified Functional Status Description No Information Available Mental Status Description No Information Available Referrals Description No Information Available
--- OUTSIDE RECORDS SUMMARY | 2019-07-26 05:34 | XMS REPORT | Continuity of Care Document ---
:1955 External Reference #:[id number] Author Name Jules Mclean MD (transmitted by agent of provider Alyx Cordero) Address [address] [facility], [facility] [place] [address] Care Team Providers Name Role Phone Melinda Julian DO - Family Care Team Information Pad Machine Offbearer Medicine Problems Active Problems Provider Date Localized, primary osteoarthritis of the shoulder Jules Mclean MD Onset: 07/2017 region Disorder of shoulder Jules Mclean MD Onset: 05/27/2017 Bicipital tenosynovitis Jules Mclean MD Onset: 07/16/2017 Incomplete rotator cuff tear or rupture of right Jules Mclean MD Onset: 08/2016 shoulder, not specified as traumatic Strain of muscle(s) and tendon(s) of the rotator Jules Mclean MD Onset: 02/2019 cuff of right shoulder, subsequent encounter Social History Type Date Description Comments Sex Unknown Tobacco Use Start: Unknown End: Former Cigarette Smoker quit 36 years ago Unknown (smoked less than a pack a day) ETOH Use Currently consumes alcohol Tobacco Use Start: Unknown End: Patient is a former 10 or fewer cigarettes Unknown smoker daily, quit 36 years ago Smoking Status Reviewed: 06/22/19 Patient is a former 10 or fewer [...] qd Unknown 15mg Tablets Clonazepam 1.5mg qd [place], 1mg Melinda, DO Tablets Protonix 1 by mouth every day Unknown 40mg Tablets DR Medications Administered in Office Medication SIG Qnty Indications Ordering Provider Date Depomedrol 80MG Janice Smaayoa M.D. 08/30/2014 Injection Depomedrol 80MG Janice Samayoa M.D. 01/18/2014 Injection Depomedrol 80MG Janice Samayoa M.D. 12/28/2013 Injection Immunizations Description No Information Available Vital Signs Date Vital Result Comment 06/22/2019 1:36pm Height 64 inches 5'4" Weight 195.00 lb Heart Rate 100 /min BP Systolic 123 mmHg BP Diastolic 62 mmHg Body Temperature 98.2 F Pain Level 6 BMI (Body Mass Index) 33.5 kg/m2 05/30/2019 9:19am Height 64 inches 5'4" Weight 194.25 lb Heart Rate 97 /min BP Systolic 130 mmHg BP Diastolic 87 mmHg O2 % BldC Oximetry 97 % BMI (Body Mass Index) 33.3 kg/m2 Results Test Acquired Date Facility Test Result H/L Range Note Laboratory test 01/05/2019 [facility] Cytology SEE RESULT [address] [place] [address] [phone] 1 SEE RESULT BELOW Name: JAVI ROSE : [address]: Juan Antonio Marino MD Acct: [id number] Unit: [id number] AGE: 63 Location: [facility] Re01/05/19 SEX: F Status: REG REF SPEC: [id number] JEROD: 01/05/19-1006 [facility] DR: Juan Antonio Marino MD REQ: [id number] RECD: 01/05/197583 STATUS: SOUT _ ORDERED: TP IMAGE ANALYS, HPV/Thin Prep COMMENTS: [id number] Negative for Intraepithelial lesion or Malignancy Date [...] was evaluated with the assistance of the [employer]Prep Test Imaging System. Due to cytologic findings at the commodity buyer microscope, comprehensive manual rescreening by a Equine Manager may be required. The Pap Smear is [...] years. END OF REPORT DEPARTMENT OF PATHOLOGY, [address] [place] [address] Bobby Noland M.D. Director [facility] # [id number] Procedures Date Code Description Status 10/19/2018 [id number] Mammogram Completed 09/16/2016 [id number] Mammogram Completed 09/09/2016 [id number] Mammogram Completed 02/19/2016 [id number] Bone Mineral Density Test Completed Medical Devices Description No Information Available Encounters Type Date Location Provider Dx Diagnosis Office Visit 05/08/2019 [facility] Melisa Saucedo, G89.4 Chronic pain 9:30a [facility] DCS ENGINEER syndrome Office Visit 04/25/2019 [facility] Claudette M79.7 Fibromyalgia 9:30a [facility] MURTAZA Perkins K58.0 Irritable bowel syndrome with diarrhea B37.9 Candidiasis, unspecified F32.1 Major depressive disorder, single episode, moderate Office Visit 03/30/2019 9:30a [facility] Claudette Perkins M79.7 Fibromyalgia [facility] PA K58.0 Irritable bowel syndrome with diarrhea B37.9 Candidiasis, unspecified F32.1 Major depressive disorder, single episode, moderate Office Visit 02/21/2019 9:30a [facility] Claudette Perkins K58.0 Irritable bowel [facility] PA syndrome with diarrhea M79.7 Fibromyalgia F32.1 Major depressive disorder, single episode, moderate Office Visit 01/17/2019 10:00a [facility] Claudette Prekins K58.0 Irritable bowel [facility] [place] syndrome with diarrhea M79.7 Fibromyalgia F32.1 Major depressive disorder, single episode, moderate Assessments Date Code Description Provider 06/22/2019 M19.011 Primary osteoarthritis, right shoulder Jules Mclean MD 06/22/2019 S46.011D Strain of muscle(s) and tendon(s) of the Jules Mclean MD rotator cuff of right shoulder, subsequent encounter 05/30/2019 M79.7 Fibromyalgia Claudette Gregorio, PA 05/30/2019 K58.0 Irritable bowel syndrome with diarrhea Claudette Gregorio, PA 05/30/2019 F32.1 Major depressive disorder, single episode, Claudette Gregorio, PA moderate 05/30/2019 B37.9 Candidiasis, unspecified Claudette Gregorio, PA 05/08/2019 G89.4 Chronic pain syndrome Melisa Saucedo NP 04/25/2019 M79.7 Fibromyalgia Claudette Gregorio, PA 04/25/2019 K58.0 Irritable bowel syndrome with diarrhea Claudette Gregorio, PA 04/25/2019 B37.9 Candidiasis, unspecified Claudette Gregorio, [...] human Juan Antonio Marino MD papillomavirus (HPV) Plan of Treatment Future Appointment(s):06/29/2019 9:30 am - MURTAZA Rodriguez at [facility]06/22/2019 - Jules Mclean, MDM19.011 Primary osteoarthritis , right shoulderFollow up:Follow up: after mRI asapS46.011D Strain of muscle(s ) and tendon(s) of the rotator cuff of right shoulder, subsequent encounter Functional Status Description No Information Available Mental Status Description No Information Available Referrals Description No Information Available
--- OUTSIDE RECORDS SUMMARY | 2019-07-26 05:34 | XMS REPORT | Continuity of Care Document ---
:1955 External Reference #:[id number] Author Name Frederic Myrick MD Address [address] [place] [address] Care Team Providers Name Role Phone Melinda Julian MD Care Team Information County Treasurer [phone] Tr Cowan MD Care Team Information County Treasurer Unavailable Problems Active Problems Provider Date Common [...] is a former smoker Smoking Status Reviewed: 07/06/19 Patient is a former smoker Allergies, Adverse [...] minutes prior to RPA-C 2.5-2.5% Cream infusion Nebulizer use nebulizer as 1Kit J20.9 Frederic Clay 11/29/2018 Kit/Tubing/Mouthpiec directed MD Ramez e Kit J45.41 Medrol take 5 tablets day 15tabs Frederic Myrick, 11/24/2018 4mg Tablets 1, take 4 tabs day MD 2, take 3 tabs day 3, take 2 tabs day 4. then take 1 tab on day 5. Albuterol Sulfate 1 vial every 4h as 150ml J20.9 Frederic Myrick, needed MD (2.5mg/3ML) 0.083% Nebulizer Gamunex-C 50GM IV Monthly Frederic Myrick, 09/27/2017 50GM/500ML MD Solution Crestor one tablet by Frederic Myrick, 09/27/2017 10mg Tablets mouth daily Protonix 1 to 2 by mouth Frederic Myrick, 06/18/[address] every day prn MD Navarrete AKNicolas Curapro - Unknown 500mg Tablets 750MG Bydureon Unknown 2mg Pen Karyna Allergy 1 tab daily in the Unknown 60mg morning Tablets Glipizide 2 tabs once daily Unknown 5mg Tablets in Am Famciclovir 2 twice a day prn Unknown 250mg Tablets -outbreak Benadryl Allergy prn-OTC Unknown 25mg Capsules Probiotic Acidophilus OTC- takes only as Unknown needed Capsules Ibuprofen 1 by mouth three Unknown 800mg Tablets times a day as needed with food prn Clonazepam 1.5mg once daily Unknown 1.5mg Tablets at hs Restasis one drop in each Unknown 0.05% Emulsion eye twice a day Remeron Take one tab daily Unknown 15mg Tablets at bedtime Medications Administered in Office Medication SIG Qnty Indications Ordering Provider Date Injection Gamunex IV Frederic Myrick MD 06/29/2019 Nonlyophilized 500 MG Injection Injection Gamunex IV Infusion 06/29/2019 Nonlyophilized 500 MG Injection IV Infusion For Frederic Myrick MD 06/29/2019 Therapy,Prophylaxis Or Diagnosis Additional Hour Injection IV Infusion For Infusion 06/29/2019 Therapy,Prophylaxis Or Diagnosis Additional Hour Injection IV Infusion For Frederic Myrick MD 06/29/2019 Therapy,Prophylaxis Or Diagnosis Init Up To 1 HR Injection IV Infusion For Infusion 06/29/2019 Therapy,Prophylaxis Or Diagnosis Init Up To 1 HR Injection Injection Gamunex IV Frederic Myrick MD 05/11/2019 [...] Frederic Myrick MD 01/18/2019 Therapy,Prophylaxis Or Diagnosis Init Up [...] Available Vital Signs Date Vital Result Comment 07/06/2019 9:30am BP Systolic 137 mmHg BP Diastolic 89 mmHg Height 64 inches 5'4" Weight 195.00 lb BMI (Body Mass Index) 33.5 kg/m2 Heart Rate 92 /min Respiratory Rate 12 /min O2 % BldC Oximetry 95 % 06/29/2019 9:03am BP Systolic 156 mmHg BP Diastolic 88 mmHg Height 64 inches 5'4" Weight 198.38 lb BMI (Body Mass Index) 34.0 kg/m2 Heart Rate 98 /min Respiratory Rate 20 /min Body Temperature 97.2 F O2 % BldC Oximetry 93 % Results Test Acquired Date Facility Test Result H/L Range Note Laboratory test 03/01/2019 [facility] <pending> finding Marie SP Unspec Spec Procedures Date Code Description Status 06/29/2019 64801 IV Infusion For Therapy,Prophylaxis Or Diagnosis Completed Additional Hour 06/29/2019 68178 IV Infusion For Therapy,Prophylaxis Or Diagnosis Completed Additional Hour 06/29/2019 55450 IV Infusion For Therapy,Prophylaxis Or Diagnosis Init Up Completed To 1 HR 06/29/2019 82854 IV Infusion For Therapy,Prophylaxis Or Diagnosis Init Up Completed To 1 HR 05/11/2019 03968 IV Infusion For Therapy,Prophylaxis Or Diagnosis Completed Additional Hour 05/11/2019 63644 IV Infusion For Therapy,Prophylaxis Or Diagnosis Completed Additional Hour 05/11/2019 50760 IV Infusion For Therapy,Prophylaxis Or Diagnosis Init Up Completed To 1 HR 05/11/2019 15391 IV Infusion For Therapy,Prophylaxis Or Diagnosis Init Up Completed To 1 HR 04/14/2019 41797 IV Infusion For Therapy,Prophylaxis Or Diagnosis Completed Additional Hour 04/14/2019 11100 IV Infusion For Therapy,Prophylaxis Or Diagnosis Completed Additional Hour 04/14/2019 06761 IV Infusion For Therapy,Prophylaxis Or Diagnosis Init Up Completed To 1 HR 04/14/2019 53586 IV Infusion For Therapy,Prophylaxis Or Diagnosis Init Up Completed To 1 HR 03/16/2019 25082 IV Infusion For Therapy,Prophylaxis Or Diagnosis Init Up Completed To 1 HR 03/16/2019 05061 IV Infusion For Therapy,Prophylaxis Or Diagnosis Init Up Completed To 1 HR 03/16/2019 15181 IV Infusion For Therapy,Prophylaxis Or Diagnosis Completed Additional Hour 03/16/2019 83397 IV Infusion For Therapy,Prophylaxis Or Diagnosis Completed Additional Hour 02/15/2019 06758 IV Infusion For Therapy,Prophylaxis Or Diagnosis Completed Additional Hour 02/15/2019 35908 IV Infusion For Therapy,Prophylaxis Or Diagnosis Completed Additional Hour 02/15/2019 82557 IV Infusion For Therapy,Prophylaxis Or Diagnosis Init Up Completed To 1 HR 02/15/2019 71753 IV Infusion For Therapy,Prophylaxis Or Diagnosis Init Up Completed To 1 HR 01/18/2019 97972 IV Infusion For Therapy,Prophylaxis Or Diagnosis Completed Additional Hour 01/18/2019 76032 IV Infusion For Therapy,Prophylaxis Or Diagnosis Completed Additional Hour 01/18/2019 12698 IV Infusion For Therapy,Prophylaxis Or Diagnosis Init Up Completed To 1 HR 01/18/2019 09583 IV Infusion For Therapy,Prophylaxis Or Diagnosis Init Up Completed To 1 HR Medical Devices Description No Information Available Encounters Type Date Location Provider Dx Diagnosis Office Visit 06/01/2019 Mary Clay 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 Office Visit 03/01/2019 Mary Champagne 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 B37.0 Candidal stomatitis Assessments Date Code Description Provider 07/06/2019 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 Frederic Myrick MD 06/29/2019 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 Frederic Myrick MD 06/29/2019 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 Infusion 06/01/2019 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 Frederic [...] Rothman 02/15/2019 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
--- OUTSIDE RECORDS SUMMARY | 2019-07-26 05:34 | XMS REPORT | Continuity of Care Document ---
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 08/30/2014 Injection Depomedrol 80MG Janice Samayoa M.D. 01/18/2014 Injection Depomedrol 80MG Janice Samayoa M.D. 12/28/2013 Injection Immunizations Description No Information Available Vital Signs Date Vital Result Comment 06/27/2019 1:01pm Height 64 inches 5'4" Weight 195.00 lb Heart Rate 112 /min Respiratory Rate 15 /min Body Temperature 98.0 F Pain Level 8 BMI (Body Mass Index) 33.5 kg/m2 06/22/2019 1:36pm Height 64 inches 5'4" Weight 195.00 lb Heart Rate 100 /min BP Systolic 123 mmHg BP Diastolic 62 mmHg Body Temperature 98.2 F Pain Level 6 BMI (Body Mass Index) 33.5 kg/m2 Results Test Acquired Date Facility Test Result H/L Range Note Laboratory test 01/05/2019 [facility] Cytology SEE RESULT [address] [place] [address] [phone] 1 SEE RESULT BELOW Name: JAVI ROSE : [address]: Juan Antonio Marino MD Acct: [id number] Unit: [id number] AGE: 63 Location: [facility] Re01/05/19 SEX: F Status: REG REF SPEC: [id number] JEROD: 01/05/19-[address] [facility] [address]: Juan Antonio Marino MD REQ: [id number] RECD: 01/05/190859 STATUS: SOUT _ ORDERED: TP IMAGE ANALYS, HPV/Thin Prep COMMENTS: [id number] Negative for Intraepithelial lesion or Malignancy Date [...] was evaluated with the assistance of the [facility] University[facility] Test Imaging System. Due to cytologic findings at the test engine evaluator microscope, comprehensive manual rescreening by a Mounter Saxophones may be required. The Pap Smear is [...] years. END OF REPORT DEPARTMENT OF PATHOLOGY, [address] [place] [address] Bobby Noland M.D. 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 Office Visit 04/25/2019 [facility] Claudette M79.7 Fibromyalgia 9:30a [facility] MURTAZA Perkins K58.0 Irritable bowel syndrome with diarrhea B37.9 Candidiasis, unspecified F32.1 Major depressive disorder, single episode, moderate Office Visit 03/30/2019 9:30a [facility] Claudette Perkins M79.7 Fibromyalgia [facility] [place] K58.0 Irritable bowel syndrome with diarrhea B37.9 Candidiasis, unspecified F32.1 Major depressive disorder, single episode, moderate Office Visit 02/21/2019 9:30a [facility] Claudette Perkins K58.0 Irritable bowel [facility] [place] syndrome with diarrhea M79.7 Fibromyalgia F32.1 Major depressive disorder, single episode, moderate Office Visit 01/17/2019 10:00a [facility] Claudette Perkins K58.0 Irritable bowel [facility] [place] syndrome with diarrhea M79.7 Fibromyalgia F32.1 Major depressive disorder, single episode, moderate Assessments Date Code Description Provider 06/27/2019 M19.011 Primary osteoarthritis, right shoulder Jules Mclean MD 06/27/2019 S46.011D Strain of muscle(s) and tendon(s) of the Jules Mclean MD rotator cuff of right shoulder, subsequent encounter 06/22/2019 M19.011 Primary osteoarthritis, right shoulder Jules Mclean MD 06/22/2019 S46.011D Strain of muscle(s) and tendon(s) of the Jules Mclean MD rotator cuff of right shoulder, subsequent encounter 05/30/2019 M79.7 Fibromyalgia Claudette Gre[place]rio, [place] 05/30/2019 K58.0 Irritable bowel syndrome with [...] MD papillomavirus (HPV) Plan of Treatment Future Appointment(s):08/08/2019 10:00 am - Jules Mclean MD at [facility] at [place]/26/2019 2:00 pm - Glenda Black PA-C at [facility] at [place]/26/2019 2:00 pm - Jules Mclean MD at [facility] at [place]/28/2019 9:30 am - MURTAZA Rodriguez at [facility]06/27/2019 - Jules Mclean, MDM19.011 Primary osteoarthritis , right shoulderFollow up:Follow up: 10-14 days post opS46.011D Strain of muscle(s) and tendon(s) of the rotator cuff of right shoulder, subsequent encounter Functional Status Description No Information Available Mental Status Description No Information Available Referrals Description No Information Available
[2019-07-26] MEDS ORDERED: ceFAZolin 2 GM PREMIX in ORs 2 GM/50 ML BAG ONE (06:00)
[2019-07-26] MEDS ORDERED: Buffered Lidocaine 1% SYRIN* 1 ML/SYRINGE INTRADERM ONE (06:00)
[2019-07-26] MEDS ORDERED: Lactated Ringers 1000 ML Bag* 1,000 ML IV SCH (06:00)
[2019-07-26] MEDS ORDERED: Midazolam* 1 MG/ML 2 ML VIAL (2 MG) ONE (07:04)
[2019-07-26] MEDS ORDERED: fentaNYL* 50 MCG/ML 2 ML VIAL (100 MCG VIAL) ONE (07:04)
[2019-07-26] MEDS ORDERED: Famotidine IV* 10 MG/ML 2 ML (20 mg) ONE (07:10)
[2019-07-26] MEDS ORDERED: ROPIVACAINE 5 MG/ML 30 ML BTL (0.5%) ONE ×2 (07:10→07:21)
[2019-07-26] MEDS ORDERED: Rocuronium* 10 MG/ML VIAL ONE ×2 (07:49→08:59)
[2019-07-26] MEDS ORDERED: Lidocaine 2% PF * 5 ML VIAL ONE (08:09)
[2019-07-26] MEDS ORDERED: Propofol* 10 MG/ML 20 ML BTL ONE (08:09)
[2019-07-26] MEDS ORDERED: Ondansetron INJ* 2 MG/ML VIAL ONE ×2 (08:09→10:47)
[2019-07-26] MEDS ORDERED: fentaNYL* 50 MCG/ML 2 ML VIAL (100 MCG VIAL) IV PRN (09:09)
[2019-07-26] MEDS ORDERED: diPHENhydraMINE IV* 50 MG/ML 1 ml VIAL (BENADRYL) IV PRN ×2 (09:09→09:57)
[2019-07-26] MEDS ORDERED: Ondansetron INJ* 2 MG/ML VIAL IV PRN (09:09)
[2019-07-26] MEDS ORDERED: DiMENhydriNATE IV* 50 MG/ML VIAL IV PUSH PRN (09:09)
[2019-07-26] MEDS ORDERED: Naloxone* 0.4 MG/ML 1 ML VIAL IV PRN (09:09)
[2019-07-26] MEDS ORDERED: Ketorolac INJ* 30 MG/ML 1 ML VIAL ONE (09:19)
[2019-07-26] MEDS ORDERED: Sugammadex * 200 MG/2 ML VIAL IV PUSH ONE (09:31)
[2019-07-26] MEDS ORDERED: Cyclobenzaprine TAB* 10 MG PO PRN (09:57)
[2019-07-26] MEDS ORDERED: Ondansetron ODT TAB* 4 MG PO PRN (09:57)
[2019-07-26] MEDS ORDERED: Magnesium Hydroxide LIQ* 30 ML UDC PO PRN (09:57)
[2019-07-26] MEDS ORDERED: oxyCODONE TAB* 5 MG TAB PO PRN (09:57)
[2019-07-26] MEDS ORDERED: diPHENhydraMINE PO* 25 MG PO PRN (09:57)
[2019-07-26] MEDS ORDERED: DiMENhydriNATE IV* 50 MG/ML VIAL ONE (10:34)
[2019-07-26] MEDS ORDERED: diPHENhydraMINE IV* 50 MG/ML 1 ml VIAL (BENADRYL) ONE (10:45)
[2019-07-26] MEDS ORDERED: FAMCICLOVIR 250 MG PO PRN (11:00)
[2019-07-26] MEDS: Lactated Ringers 1000 ML Bag* 1,000 ML IV SCH (12:11)
[2019-07-26] MEDS: Acetaminophen TAB* 325 MG PO SCH ×2 (12:46→21:09)
[2019-07-26] MEDS: ceFAZolin 1 GM ADVAN(*) 1 GM in NS 0.9% 50 ML* 50 ML IVPB SCH (15:52)
[2019-07-26] MEDS: Ondansetron INJ* 2 MG/ML VIAL IV PRN (16:46)
[2019-07-26] MEDS: oxyCODONE/Acetamin 5/325 MG* TAB PO PRN ×2 (17:24→19:50)
--- NOTE | 2019-07-26 17:42 | PN ---
Progress Note - Progress Note Date of Service: 07/26/19 Note: Pt seen and examined. No complaints. + flatus Temp Pulse Resp BP Pulse Ox 98.1 F 88 18 133/70 95 07/26/19 15:54 07/26/19 15:54 07/26/19 17:24 07/26/19 15:54 07/26/19 15:54 NAD. AAOx3. RUE: dressing in place. Sling in place. warm and well perfused. able to flex/ext digits. xrays reviewed and acceptable A/P 63 yo F s/p reverse with open biceps tenodesis analgesia NWB PT/OT- passive ROM only continue lovenox until d/c drain to be d/c'd tomorrow home tomorrow if pain controlled
[2019-07-26] MEDS ORDERED: Atorvastatin* 10 MG TAB PO SCH (18:00)
[2019-07-26] MEDS: Magnesium Hydroxide LIQ* 30 ML UDC PO SCH (19:45)
[2019-07-26] MEDS: Docusate CAP* 100 MG PO SCH (19:46)
[2019-07-26] MEDS: PTO: Cyclosporine 0.05% OPHTH (NF) 0.4 ML VIAL BOTH EYES SCH (19:47)
[2019-07-26] MEDS: Pantoprazole TAB * 40 MG TAB PO SCH (19:51)
[2019-07-26] MEDS ORDERED: clonazePAM TAB(*) 0.5 MG PO SCH (21:00)
[2019-07-26] MEDS ORDERED: Mirtazapine TAB* 15 MG PO SCH (21:00)
[2019-07-27] MEDS: oxyCODONE/Acetamin 5/325 MG* TAB PO PRN ×3 (00:05→11:48)
[2019-07-27] MEDS: ceFAZolin 1 GM ADVAN(*) 1 GM in NS 0.9% 50 ML* 50 ML IVPB SCH ×2 (00:07→07:44)
[2019-07-27] MEDS: Ondansetron INJ* 2 MG/ML VIAL IV PRN ×2 (00:34→07:48)
[2019-07-27] MEDS: Lactated Ringers 1000 ML Bag* 1,000 ML IV SCH (01:26)
[2019-07-27] MEDS: Acetaminophen TAB* 325 MG PO SCH (05:08)
--- NOTE | 2019-07-27 05:29 | OP ---
DATE OF OPERATION: 07/26/19 - ROOM #341 DATE OF : [birth year] SURGEON: Jules Mclean MD HEART COORDINATOR: MURTAZA De Santiago. An printing bindery assistant was needed for the entirety of the case due to the patient's size to help with positioning, retraction, and was utilized throughout all portions of the case. ANESTHESIOLOGIST: Dr. Ya ANESTHESIA: General, interscalene block. PRE-OP DIAGNOSIS: Right shoulder advanced rotator cuff arthropathy with partial tearing of the rotator cuff. POST-OP DIAGNOSIS: Right shoulder advanced rotator cuff arthropathy with partial tearing of the rotator cuff. OPERATIVE PROCEDURE: Right shoulder reverse arthroplasty and open biceps tenodesis. COMPLICATIONS: None. ESTIMATED BLOOD LOSS: Minimal. INDICATIONS: Meagan Rose is a 63-year-old female with right shoulder advanced glenohumeral arthritis and partial tear of the rotator cuff. Her motion was poor prior to surgery. After extensive discussion of the risks and benefits of operative versus nonoperative treatment, she has elected to proceed with surgical treatment. Risks include but are not limited to bleeding, infection, damage to nerves, vessels, surrounding structure, wound nonhealing, persistent pain, need for surgery, scarring, stiffness, incomplete relief of symptoms, risk of anesthesia, fracture, dislocation, need for surgery, risk of DVT. She has elected to proceed with surgical treatment. DESCRIPTION OF PROCEDURE: The patient was greeted in the preoperative area by the attending surgeon. Correct extremity was marked and consent was confirmed. She underwent interscalene nerve block by the anesthesiologist. She was brought back to the operating suite and placed in the supine position on the operating table and underwent general anesthesia and endotracheal intubation after which she was positioned in lazy beach chair position. All bony prominences were padded. She was secured carefully. The right shoulder was then prepped and draped in the usual sterile fashion using chlorhexidine soap, scrub, and alcohol wipe and a final prep with ChloraPrep. After appropriate surgical pause indicating side, site, and procedure administration of antibiotics, a standard deltopectoral incision was made using 15-blade. The soft tissue carefully dissected to expose the deltopectoral interval. Preoperatively, the patient's range of motion was checked. She was found to have forward flexion to about 95 and abduction to about 80, external rotation to about 20. Decision was made to do a reverse just based on motion alone. Although, we would check the rotator cuff. A standard incision was made and deltopectoral interval was identified, the cephalic vein was taken laterally, pec medially, the clavipectoral fascia was identified. CA ligament was released. The proximal 1 to 1.5 cm of the pec was then identified and released and the biceps was then identified and tenodesed using a heavy nonabsorbable suture, tenotomized proximal to this and followed into the joint and subscap was identified and released in subscap peel fashion. The subscap appeared to be intact, but the supraspinatus had some partial thickness interstitial tearing. Based on the motion and the patient's rotator cuff decision was made to proceed with the reverse. The subscap was then released. The head was externally rotated. There was a large anterior inferior spur that was identified, this was released using the osteotomes and rongeur. This has helped to expose the normal humeral anatomy. Once the head was identified and thoroughly exposed, the provisional neck cut was then made using an oscillating saw. The bone quality was okay. Broaching then began beginning with canal finder. The bone quality was not as good, size 3A was found to sit appropriately with 20 degrees of retroversion. The protection plate was placed and attention was directed to the glenoid. The glenoid was then exposed. The posterior retractor was placed. The superior , medial, and inferior glenohumeral ligaments were released to allow for subscap to mobilize more. Then the labrum was released anterior, posterior, and superiorly. I carefully used electrocautery device, this exposed the glenoid. The glenoid had grade 4 changes. Inferior labrum was released using tension of soft tissues. The glenoid was exposed. Then a guide was placed inferiorly in the glenoid, was then reamed with a 25 base plate reamer. The patient did have some posterior base wear, which was identified preoperatively as well. Incision was made to try to bone graft the posterior aspect of the glenoid. Once the reamer was then used to ream, the footprint reamer was done by hand. The 8 mm cannulated drill bit was then drilled then 6.5 mm drill bit to a depth of 30 mm. Decision was made to proceed with 35 x 25 mm base plate. The screw hole was tapped. The implant was then placed with excellent purchase. The 3 interlocking screws were then placed and excess bone graft was placed posteriorly behind the glenoid. The size 36 glenosphere was then impacted and position secured with a set screw. The attention was directed then to humerus. The humerus was checked again. A size 3A was found to fit. The center tray was then placed and the +6 poly. The shoulder was then reduced and taken through range of motion. Forward flexion about 155, abduction to 90, external rotation to about 40 with appropriate shuck. The final implants were the chosen and brought to the field. They were prepared on the back table by the attending surgeon. Two interosseous tunnels were also placed. The trial components were removed to allow for subscap repair. #5 Ethibond sutures were passed. The final implants were then placed and impacted into position. The final poly was also placed. The shoulder was reduced, taken through same motion. The wounds were then copiously irrigated using sterile saline. The subscap was closed in a horizontal mattress configuration. The wounds were irrigated again and intraarticular drain was placed. The wounds were irrigated again and the deltopectoral interval was closed with #2 Ethibond. The wounds were irrigated and the skin was closed in layers with 3-0 Monocryl and subcutaneous with 3-0 Monocryl running. Sterile dressings were applied and Cryo /Cuff and UltraSling were applied. She was awoken from anesthesia and transferred to the PACU in stable condition. POSTOPERATIVE PLAN: She will be nonweightbearing. She will be in the sling for 6 weeks. Discharged on pain medication. Passive motion only. DVT prophylaxis with Lovenox while inhouse, she will not go home with anything due to no previous personal history. She will have 24 hours postoperative antibiotics. I will see the patient back in 10 to 14 days. [id number]/[facility] #: [id number] [facility] HOSPITALKetan
[2019-07-27 06:17] LABS: Hematocrit 34 % (35-47); Hemoglobin 11.8 g/dL (12.0-16.0); Mean Platelet Volume 7.8 fL (7.4-10.4); Platelet Count 205 10^3/uL (150-450)
[2019-07-27 06:32] LABS: BUN/Creatinine Ratio 19.5 (8-20); Calcium 8.7 mg/dL (8.6-10.3); EGFR African American 80.1 (>60); EGFR Non-African American 66.2 (>60); Potassium 4.2 mmol/L (3.5-5.0)
[2019-07-27 07:52] VITALS: BP 155/55
[2019-07-27] MEDS: Docusate CAP* 100 MG PO SCH (08:11)
[2019-07-27] MEDS: Magnesium Hydroxide LIQ* 30 ML UDC PO SCH (08:11)
[2019-07-27] MEDS: Pantoprazole TAB * 40 MG TAB PO SCH (08:15)
[2019-07-27] MEDS: PTO: Cyclosporine 0.05% OPHTH (NF) 0.4 ML VIAL BOTH EYES SCH (08:16)
[2019-07-27] MEDS ORDERED: Vitamin THERAPEUTIC TAB PO SCH (09:00)
[2019-07-27] MEDS ORDERED: glipiZIDE TAB* 5 MG PO SCH (09:00)
--- NOTE | 2019-07-27 09:47 | PN ---
Progress Note - Progress Note Date of Service: 07/27/19 SOAP: Subjective: []Pt seen at bedside. She feels well without shoulder pain. denies CP, SOB, dizziness or nausea. Objective: []Gen: NAD, appears well RUE: Drain pulled with tip intact tolerated well by the patient. Able to f/e at wrist and mcps, okay and thumbs up intact. Sensation intact to light touch distally, cap refill less than two seconds distally, radial pulse 2+ calves supple and nontender Assessment: [POD 1 s/p right reverse with open biceps tenodesis Plan: [] NWB RUE PT/OT- passive ROM only continue lovenox until d/c drain dc'ed today minimal bloody drainage home today Vital Signs Temp 98.8 F 07/27/19 07:51 Pulse 97 07/27/19 07:51 Resp 16 07/27/19 08:00 BP 155/55 07/27/19 07:51 Pulse Ox 95 07/27/19 08:00 Intake & Output 07/26/19 07/27/19 07/27/19 18:59 06:59 18:59 Intake Total 1555 1800 415 Output Total 600 1200 Balance 955 600 415 Intake: IV Fluids 1155 990 55 ABX - CEFAZOLIN 55 55 LR 1100 990 IVPB 110 ABX - CEFAZOLIN 110 Oral 400 700 360 Output: Hemovac Amount #1 100 Urine 500 850 Emesis 100 250 Other: # Bowel Movements 1 Estimated Stool Amount Medium Laboratory Last Values Hgb 11.8 g/dL (12.0-16.0) L 07/27/19 06:06 Hct 34 % (35-47) L 07/27/19 06:06 Plt Count 205 10^3/uL (150-450) 07/27/19 06:06 MPV 7.8 fL (7.4-10.4) 07/27/19 06:06 Sodium 138 mmol/L (135-145) 07/27/19 06:06 Potassium 4.2 mmol/L (3.5-5.0) 07/27/19 06:06 Chloride 104 mmol/L (101-111) 07/27/19 06:06 Carbon Dioxide 27 mmol/L (22-32) 07/27/19 06:06 Anion Gap 7 mmol/L (2-11) 07/27/19 06:06 BUN 17 mg/dL (6-24) 07/27/19 06:06 Creatinine 0.87 mg/dL (0.51-0.95) 07/27/19 06:06 Est GFR ( Amer) 80.1 (>60) 07/27/19 06:06 Est GFR (Non-Af Amer) 66.2 (>60) 07/27/19 06:06 BUN/Creatinine Ratio 19.5 (8-20) 07/27/19 06:06 Glucose 156 mg/dL (70-100) H 07/27/19 06:06 POC Glucose (mg/dL) 121 mg/dL (70-100) H 07/26/19 17:55 Calcium 8.7 mg/dL (8.6-10.3) 07/27/19 06:06
--- NOTE | 2019-07-27 09:54 | DS ---
Orthopedic Discharge Summary - Discharge Summary Date of Admission:07/26/19 Date of Discharge: 07/27/19 Date of Surgery: 07/26/19 Attending Orthopedic Provider: Dr Vásquez Pre-operative Diagnosis: right shoulder osteoarthritis Operative Procedure: right reverse with open biceps tenodesis Disposition of Patient: home Condition of Patient: stable History: JAVI AKERS is a 63 year old F with years of increasingly severe right shoulder pain. Patient has failed conservative management and has elected to undergo a right reverse total shoulder replacement Hospital Course: JAVI was admitted to [facility] on 07/26/19. Patient underwent a right reverse shoulder replacement with open biceps tenodesis without complication followed by a brief recovery in PACU and transfer to the Short Stay Surgical Unit in stable condition. Our hospitalist service, physical therapy and occupational therapy also participated in this patients care. Post-op day 1: patient was alert and in no acute distress. Dressing was clean, dry and intact. Drain was removed with tip intact. NVI distally. Physical therapy goals were met. Home Medications Medication Instructions Recorded Confirmed Type clonazePAM TAB(*) [Klonopin TAB(*)] 1.5 mg PO BEDTIME 08/01/13 07/26/19 History Mirtazapine TAB* [Remeron TAB*] 15 mg PO BEDTIME 06/16/17 07/26/19 History Candex 2 cap PO QAM 07/18/19 07/26/19 History Curapro-Turmeric, Curcumin 1 tab PO QAM 07/18/19 07/26/19 History Cyclosporine 0.05% OPHTH (NF) 1 drop BOTH EYES BID 07/18/19 07/26/19 History [Restasis 0.05% OPHTH] Exenatide Microspheres [Bydureon 2 mg SUBCUT TU 07/18/19 07/26/19 History Pen] Famciclovir 1,000 mg PO SEE INSTRUCTIONS 07/18/19 07/26/19 History Fluconazole [Fluconazole 200 mg 200 mg PO FR PRN 07/18/19 07/26/19 History tab] Gammagard 5% 10 gm [Gammagard S/D 50 gm IV Q30D 07/18/19 07/26/19 History IgA Less Than 1 mcg/mL] Nasacort [place] 1 spray BOTH NARES QPM PRN 07/18/19 07/26/19 History Pantoprazole TAB * [Protonix TAB*] 40 mg PO BID 07/18/19 07/26/19 History Probiotic & Pprebiotics 1 cap PO QAM 07/18/19 07/26/19 History Rosuvastatin Calcium [Crestor] 5 mg PO QPM 07/18/19 07/26/19 History glipiZIDE TAB* [Glucotrol TAB*] 2 tab PO QAM 07/18/19 07/26/19 History Acetaminophen TAB* [Tylenol TAB*] 975 mg PO Q8HR tab 07/27/19 Rx Docusate CAP* [Colace Cap*] 100 mg PO BID cap 07/27/19 Rx oxyCODONE/Acetamin 5/325 MG* 1 tab PO Q4H PRN tab MDD 8 07/27/19 Rx [Percocet 5/325 TAB*] oxyCODONE/Acetamin 5/325 MG* 2 tab PO Q4H PRN #50 tab MDD 10 07/27/19 Rx [Percocet 5/325 TAB*] Orthopedic Total Shoulder Instruction Non-weight bearing for operative upper extremity. No active range of motion at the shoulder. Continue elbow, wrist, and hand pendulums shown by PT . You do not need to attend formal PT until follow up visit. Wound Care: OK to shower after third post- operative day, no bathing/ swimming / submerging wound. Use gentle soap, pat dry. Cover with gauze, tape. Pain control with: percocet 5/325 mg 1 tab for moderate and 2 tabs for severe pain by mouth every 4 hours as needed with a max of 8 per day. Hold for sedation and wean off as soon as pain allows. Please note that percocet contains tylenol (acetaminophen). Maximum daily dose of tylenol is 4000 mg from all sources. Diet: Regular diet, increase fluids and fiber to prevent constipation. Continue to use stool softeners, call office if no bowel motion within 48 hours. Call Orthopedic office for increased drainage, redness, increased pain, or fever. Go to ER with shortness of breath or chest pain. - Antibiotics required prior to any dental work Call our office to make an appointment wt Dr vásquez 10-14 days post op if you do not already have one. Please call our office with any questions or concerns ([phone] [place] to [facility]
[2019-07-27] MEDS ORDERED: Enoxaparin(*) 40 MG/0.4 ML SYR SUBCUT SCH (12:00)
== END 2019-07-27 13:35 | disposition home or self-care (01) | DRG 483 ==
LOC: INTOOBSV 05:31 → AA 05:31 → SSU 09:58 → OBSVTOIN 07-27 10:00
PROVIDERS: ADMIT Orthopaedic Surgery; ATTEND Orthopaedic Surgery
PROC: 0RRJ00Z Replacement of Right Shoulder Joint with Reverse Ball and Socket Synthetic Substitute, Open Approach (ICD-10-PCS; principal; 2019-07-27)
DX: M19.011 Primary osteoarthritis, right shoulder (principal); I10 Essential (primary) hypertension; K74.0 Hepatic fibrosis; K22.70 Barrett's esophagus without dysplasia; F41.9 Anxiety disorder, unspecified; F32.9 Major depressive disorder, single episode, unspecified; M79.7 Fibromyalgia; E11.9 Type 2 diabetes mellitus without complications; J45.909 Unspecified asthma, uncomplicated; M75.101 Unspecified rotator cuff tear or rupture of right shoulder, not specified as traumatic; K21.9 Gastro-esophageal reflux disease without esophagitis; Z79.899 Other long term (current) drug therapy; Z85.830 Personal history of malignant neoplasm of bone; Z88.5 Allergy status to narcotic agent; Z88.8 Allergy status to other drugs, medicaments and biological substances; Z88.1 Allergy status to other antibiotic agents
CPT/HCPCS: 36415; 80048; 85014; 85018; 85049; 88304; 88311; A9270-GY; C1713; C1776; G8978-GP-CH; G8979-GP-CH; G8980-GP-CH; G8987-GO-CJ; G8988-GO-CJ; G8989-GO-CJ; J0690; J1200; J1240; J1650; J1885; J2250; J2405; J2704; J2795; J3010